=== PATIENT | female | born 1935 | race American Indian/Alaskan Native ===

== ENCOUNTER 2020-07-17 13:31 | Inpatient (IN) ==
[2020-07-17 15:28] LABS: ABS Basophils 0.1 10^3/ul (0-0.2); ABS Eosinophils 0.1 10^3/ul (0-0.6); ABS Lymphocytes 1.5 10^3/ul (1.0-4.8); ABS Monocytes 0.5 10^3/ul (0-0.8); ABS Neutrophils 3.6 10^3/ul (1.5-7.7); Eosinophil % 2.3 %; Hematocrit 49 % (35-47); Mean Corpuscular HGB Conc 33 g/dL (31-36); Mean Corpuscular Hemoglobin 30 pg (27-31); Mean Corpuscular Volume 91 fL (80-97); Mean Platelet Volume 9.7 fL (7.4-10.4); Nucleated Red Blood Cells % 0.1; Platelet Count 191 10^3/uL (150-450); Red Blood Count 5.36 10^6 /uL (3.70-4.87); Red Cell Distribution Width 15 % (10-15); White Blood Count 5.8 10^3/uL (3.5-10.8)
[2020-07-17 15:46] LABS: Albumin 4.6 g/dL (3.2-5.2); Albumin/Globulin Ratio 1.4 (1-3); BUN/Creatinine Ratio 10.8 (8-20); Calcium 10.1 mg/dL (8.6-10.3); EGFR African American 56.5 (>60); EGFR Non-African American 46.7 (>60); Globulin 3.2 g/dL (2-4); Potassium 3.8 mmol/L (3.5-5.0); Total Bilirubin 0.7 mg/dL (0.2-1.0); Total Protein 7.8 g/dL (6.4-8.9)
[2020-07-17 15:47] LABS: Troponin I 0.01 ng/mL (<0.03)
[2020-07-17] MEDS ORDERED: hydrALAZINE 20 mg/ml 1 ML Vial IV IV SLOW PU ONE (15:50)
[2020-07-17 16:00] LABS: TSH Ultra Thyroid Stim Horm 4.75 mcIU/mL (0.34-5.60)
[2020-07-17 16:10] LABS: Urine Appearance Cloudy; Urine Bilirubin Negative (Negative); Urine Blood Negative (Negative); Urine Color Yellow; Urine Glucose Negative (Negative); Urine Ketones Negative (Negative); Urine Nitrite Positive (Negative); Urine Protein Negative (Negative); Urine Specific Gravity 1.004 (1.010-1.030); Urine Urobilinogen Negative (Negative)
[2020-07-17 16:13] LABS: Urine Bacteria 1+ (Absent); Urine Red Blood Cell 2+(6-10/hpf) (Absent); Urine Squamous Epithelial Cell Present (Absent); Urine White Blood Cell Trace(0-5/hpf) (Absent)
[2020-07-17] MEDS ORDERED: hydrALAZINE 20 mg/ml 1 ML Vial IV IV SLOW PU PRN ×2 (18:17→19:21)
[2020-07-17] MEDS ORDERED: cefTRIAXone 1 gm/50 mL NS BAG 1 GM/50 ML BAG IV ONE (19:33)
[2020-07-18 07:14] LABS: ABS Basophils 0.1 10^3/ul (0-0.2); ABS Eosinophils 0.1 10^3/ul (0-0.6); ABS Lymphocytes 1.3 10^3/ul (1.0-4.8); ABS Monocytes 0.7 10^3/ul (0-0.8); ABS Neutrophils 4.8 10^3/ul (1.5-7.7); Eosinophil % 1.7 %; Hematocrit 44 % (35-47); Hemoglobin 14.6 g/dL (12.0-16.0); Lymphocyte % 18.5 %; Mean Corpuscular HGB Conc 33 g/dL (31-36); Mean Corpuscular Hemoglobin 30 pg (27-31); Mean Corpuscular Volume 90 fL (80-97); Nucleated Red Blood Cells % 0.1; Platelet Count 182 10^3/uL (150-450); Red Blood Count 4.86 10^6 /uL (3.70-4.87); Red Cell Distribution Width 14 % (10-15); White Blood Count 6.9 10^3/uL (3.5-10.8)
[2020-07-18 07:28] LABS: BUN/Creatinine Ratio 16.3 (8-20); Calcium 9.6 mg/dL (8.6-10.3); EGFR African American 60.9 (>60); EGFR Non-African American 50.4 (>60); HDL Cholesterol 40.5 mg/dL; Potassium 3.9 mmol/L (3.5-5.0)
[2020-07-18 07:33] LABS: INR 1.1 (0.82-1.09)
[2020-07-18] MEDS ORDERED: Benzocaine/Menthol LOZ PO PRN (11:15)
[2020-07-18] MEDS ORDERED: Cyanocobalamin INJ 1,000 MCG/ML VIAL 1 ML VIAL IM ONE (12:00)
[2020-07-18] MEDS: cefTRIAXone 1 gm/50 mL NS BAG 1 GM/50 ML BAG IVPB SCH (19:54)
[2020-07-19 08:45] LABS: Hematocrit 42 % (35-47); Mean Corpuscular HGB Conc 34 g/dL (31-36); Mean Corpuscular Hemoglobin 30 pg (27-31); Mean Corpuscular Volume 90 fL (80-97); Red Blood Count 4.67 10^6 /uL (3.70-4.87); Red Cell Distribution Width 14 % (10-15); White Blood Count 5.8 10^3/uL (3.5-10.8)
[2020-07-19 09:00] LABS: BUN/Creatinine Ratio 18.5 (8-20); Calcium 9.2 mg/dL (8.6-10.3); EGFR African American 58.3 (>60); EGFR Non-African American 48.2 (>60); Potassium 4.2 mmol/L (3.5-5.0)
[2020-07-19 09:11] LABS: Mean Platelet Volume 10.5 fL (7.4-10.4); Platelet Count 166 10^3/uL (150-450)
[2020-07-19] MEDS: cefTRIAXone 1 gm/50 mL NS BAG 1 GM/50 ML BAG IVPB SCH (20:09)
[2020-07-20 06:03] LABS: ABS Basophils 0.1 10^3/ul (0-0.2); ABS Eosinophils 0.4 10^3/ul (0-0.6); ABS Lymphocytes 1.3 10^3/ul (1.0-4.8); ABS Monocytes 0.6 10^3/ul (0-0.8); ABS Neutrophils 3.3 10^3/ul (1.5-7.7); Eosinophil % 6.4 %; Hematocrit 43 % (35-47); Hemoglobin 14.2 g/dL (12.0-16.0); Mean Corpuscular HGB Conc 33 g/dL (31-36); Mean Corpuscular Hemoglobin 30 pg (27-31); Mean Corpuscular Volume 90 fL (80-97); Mean Platelet Volume 10.2 fL (7.4-10.4); Platelet Count 183 10^3/uL (150-450); Red Blood Count 4.74 10^6 /uL (3.70-4.87); Red Cell Distribution Width 15 % (10-15); White Blood Count 5.7 10^3/uL (3.5-10.8)
[2020-07-20 06:24] LABS: BUN/Creatinine Ratio 17.1 (8-20); Calcium 9.3 mg/dL (8.6-10.3); EGFR African American 56.5 (>60); EGFR Non-African American 46.7 (>60)
[2020-07-20 12:12] VITALS: BP 141/54
== END 2020-07-20 14:00 | DRG 65 ==
LOC: ED 13:31 → MEDTELE 20:48
PROVIDERS: ADMIT Internal Medicine; ATTEND Internal Medicine

== ENCOUNTER 2020-07-20 09:08 | Inpatient (IN) ==
[2020-07-20] MEDS ORDERED: Al Hydrox/Mg Hydrox/Simet LIQ 30 ML UDC PO PRN (11:32)
[2020-07-20] MEDS ORDERED: Senna TAB 8.6 mg TAB PO PRN (11:32)
[2020-07-20] MEDS ORDERED: Magnesium Hydroxide LIQ 30 ML UDC PO PRN (11:32)
[2020-07-20] MEDS ORDERED: Benzocaine/Menthol LOZ PO PRN (11:46)
[2020-07-20] MEDS: Enoxaparin 30 MG/0.3 ML SYR SUBCUT SCH (17:05)
[2020-07-21 06:36] LABS: ABS Basophils 0.1 10^3/ul (0-0.2); ABS Eosinophils 0.3 10^3/ul (0-0.6); ABS Lymphocytes 1.4 10^3/ul (1.0-4.8); ABS Monocytes 0.6 10^3/ul (0-0.8); Eosinophil % 5.7 %; Hematocrit 42 % (35-47); Mean Corpuscular HGB Conc 33 g/dL (31-36); Mean Corpuscular Hemoglobin 30 pg (27-31); Mean Corpuscular Volume 91 fL (80-97); Platelet Count 174 10^3/uL (150-450); Red Blood Count 4.65 10^6 /uL (3.70-4.87); Red Cell Distribution Width 14 % (10-15); White Blood Count 5.3 10^3/uL (3.5-10.8)
[2020-07-21 06:58] LABS: ALT 19 U/L (7-52); Albumin 3.6 g/dL (3.2-5.2); Albumin/Globulin Ratio 1.3 (1-3); Alkaline Phosphatase 75 U/L (34-104); BUN/Creatinine Ratio 21.1 (8-20); Blood Urea Nitrogen 23 mg/dL (6-24); CO2 Carbon Dioxide 24 mmol/L (22-32); Chloride 105 mmol/L (101-111); EGFR African American 57.7 (>60); EGFR Non-African American 47.7 (>60); Globulin 2.8 g/dL (2-4); Glucose 113 mg/dL (70-100); Sodium 137 mmol/L (135-145); Total Protein 6.4 g/dL (6.4-8.9)
[2020-07-21 07:22] LABS: Anion Gap 8 mmol/L (2-11)
[2020-07-21] MEDS: Aspirin EC 81 mg TAB.EC (enteric coated) PO SCH (08:39)
[2020-07-21] MEDS: Enoxaparin 30 MG/0.3 ML SYR SUBCUT SCH (14:41)
[2020-07-22] MEDS: Aspirin EC 81 mg TAB.EC (enteric coated) PO SCH (09:47)
[2020-07-22] MEDS: Enoxaparin 30 MG/0.3 ML SYR SUBCUT SCH (14:50)
[2020-07-22] MEDS: Polyethyl Glycol/Propylene Gly OPHTH.SOLN BOTH EYES PRN (14:51)
[2020-07-23] MEDS: Aspirin EC 81 mg TAB.EC (enteric coated) PO SCH (09:36)
[2020-07-23] MEDS: Polyethyl Glycol/Propylene Gly OPHTH.SOLN BOTH EYES PRN (09:36)
[2020-07-23] MEDS: Enoxaparin 30 MG/0.3 ML SYR SUBCUT SCH (14:47)
[2020-07-24] MEDS: Aspirin EC 81 mg TAB.EC (enteric coated) PO SCH (08:30)
[2020-07-24] MEDS: Polyethyl Glycol/Propylene Gly OPHTH.SOLN BOTH EYES PRN (08:31)
[2020-07-24] MEDS: Enoxaparin 30 MG/0.3 ML SYR SUBCUT SCH (14:25)
[2020-07-25] MEDS: Aspirin EC 81 mg TAB.EC (enteric coated) PO SCH (09:00)
[2020-07-25] MEDS: Enoxaparin 30 MG/0.3 ML SYR SUBCUT SCH (15:27)
[2020-07-26] MEDS: Aspirin EC 81 mg TAB.EC (enteric coated) PO SCH (09:06)
[2020-07-26] MEDS: Polyethyl Glycol/Propylene Gly OPHTH.SOLN BOTH EYES PRN ×2 (09:08→20:23)
[2020-07-26] MEDS: Enoxaparin 30 MG/0.3 ML SYR SUBCUT SCH (15:54)
[2020-07-27] MEDS: Aspirin EC 81 mg TAB.EC (enteric coated) PO SCH (08:23)
[2020-07-27] MEDS: Enoxaparin 30 MG/0.3 ML SYR SUBCUT SCH (14:37)
[2020-07-28 04:31] VITALS: BP 153/55
[2020-07-28 05:55] LABS: ABS Basophils 0.1 10^3/ul (0-0.2); ABS Eosinophils 0.3 10^3/ul (0-0.6); ABS Lymphocytes 1.3 10^3/ul (1.0-4.8); ABS Monocytes 0.7 10^3/ul (0-0.8); Eosinophil % 5.4 %; Hematocrit 40 % (35-47); Hemoglobin 13.2 g/dL (12.0-16.0); Lymphocyte % 24.1 %; Mean Corpuscular HGB Conc 33 g/dL (31-36); Mean Corpuscular Hemoglobin 30 pg (27-31); Mean Corpuscular Volume 90 fL (80-97); Mean Platelet Volume 10.2 fL (7.4-10.4); Platelet Count 179 10^3/uL (150-450); Red Cell Distribution Width 15 % (10-15); White Blood Count 5.3 10^3/uL (3.5-10.8)
[2020-07-28 06:15] LABS: Albumin 3.7 g/dL (3.2-5.2); Albumin/Globulin Ratio 1.5 (1-3); BUN/Creatinine Ratio 12.8 (8-20); EGFR African American 57.7 (>60); EGFR Non-African American 47.7 (>60); Globulin 2.4 g/dL (2-4); Potassium 4.3 mmol/L (3.5-5.0); Total Bilirubin 0.7 mg/dL (0.2-1.0); Total Protein 6.1 g/dL (6.4-8.9)
[2020-07-28] MEDS: Aspirin EC 81 mg TAB.EC (enteric coated) PO SCH (08:20)
== END 2020-07-28 11:15 | disposition home health service (06) | DRG 57 ==
LOC: PMRU 14:10
PROVIDERS: ADMIT Physical Medicine & Rehabilitation; ATTEND Physical Medicine & Rehabilitation